=== PATIENT | female | born 1980 | race Caucasian/White ===

== ENCOUNTER 2024-03-11 11:30 | Emergency (ER) | payer SELFPAY ==
[~2024-03-11] VITALS: Ht 167.6 cm; Wt 73.0 kg
[2024-03-11 11:34] VITALS: BP 151/100; PULSE 120; RESP 18; TEMP 98.3; O2SAT 99
== END 2024-03-11 11:55 | disposition left against medical advice (07) ==
LOC: ER 11:30
DX: F98.9 Unspecified behavioral and emotional disorders with onset usually occurring in childhood and adolescence (principal); Z53.21 Procedure and treatment not carried out due to patient leaving prior to being seen by health care provider
CPT/HCPCS: 99281